=== PATIENT | male | born 1960 | race African-American/Black ===

== ENCOUNTER → 2017-08-02 | Outpatient (CLI) | payer MEDICAID ==
[2017-08-02 09:28] LABS: BLOOD GAS BASE EXCESS 0.6 mmol/L (-2-2); BLOOD GAS CARBOXYHEMOGLOBIN 0.9 % (0-4); BLOOD GAS HCO3 25 mmol/L (22-26); BLOOD GAS METHEMOGLOBIN 1.1 % (0-2); BLOOD GAS O2 HGB SATURATION 93 % (90-100); BLOOD GAS OXYGEN CONTENT 16.7 Vol % (12.0-20.0); BLOOD GAS PCO2 43 mmHg (38-42); BLOOD GAS PO2 79 mmHg (61-120); BLOOD GAS TOTAL HGB 12.7 G/DL (12.0-16.0); CRITICAL VALUE NO; DRAW SITE RT RADIAL; FIO2 21 %; NUMBER OF ARTERIAL PUNCTURES 1; STAT NO; TEMP CORR TO 98.6; ULNAR PULSE PRESENT
--- NOTE | 2017-08-02 10:18 | RADRPT ---
EXAM DATE/TIME: 08/02/2017 09:38 [facility] COMPARISON: No previous studies available for comparison. INDICATIONS : Short of breath. Abnormal breathing. MEDICAL HISTORY : None. SURGICAL HISTORY : None. ENCOUNTER: Initial ACUITY: 1 day PAIN SCORE: 0/10 LOCATION: chest FINDINGS: PA and lateral views of the chest demonstrate the lungs to be symmetrically aerated without evidence of mass, infiltrate or effusion. The cardiomediastinal contours are unremarkable. Osseous structure s are intact. CONCLUSION: No acute disease. Micha Leone MD FACR on August 02, 2017 at 10:13 Board Certified Radiologist. This report was verified electronically.
--- NOTE | 2017-08-07 10:06 | RSPPFT ---
DATE OF PROCEDURE: 08/02/17 COMMENTS: Spirometry with FVC of 2.6, FEV1 of 1.6, FEV1/FVC ratio at 61%. There is a non-significant response to acutely inhaled bronchodilator. Room air arterial blood gases show pH of 7.38, PCO2 of 43, PO2 of 79. Slow vital capacity is 67% of predicted. TLC is 69%. Diffusion capacity is 45% and normal when corrected for alveolar volume. IMPRESSION: 1. Moderately severe airways obstruction. 2. Non-significant response to acutely inhaled bronchodilator. 3. Adequate oxygenation and alveolar ventilation. 4. Mild airways restriction. 5. Reduced diffusion capacity but normal when corrected for alveolar volume.
== END ==
LOC: HRSP 08:37
PROVIDERS: ATTEND Internal Medicine Sleep Medicine
DX: R06.89 Other abnormalities of breathing (principal)
CPT/HCPCS: 36600; 71020; 82805; 94060; 94726; 94729

== ENCOUNTER 2017-11-11 04:16 | Observation (INO) | payer MEDICAID ==
[~2017-11-11] VITALS: Ht 170.2 cm; Wt 90.9 kg
[2017-11-11 04:22] VITALS: BP 208/111; PULSE 124; RESP 20; TEMP 102; O2SAT 99
[2017-11-11] MEDS ORDERED: SYMB160A INH (04:30)
[2017-11-11] MEDS ORDERED: VENTAER INH (04:30)
[2017-11-11] MEDS ORDERED: TIOT12.9 INH (04:30)
[2017-11-11] MEDS ORDERED: LEVEMIR SQ (04:30)
[2017-11-11] MEDS ORDERED: METF1000 PO (04:30)
[2017-11-11] MEDS ORDERED: ACETAMINOPHEN 325 MG TAB PO ONE (05:00)
--- NOTE | 2017-11-11 05:06 | PD ---
HPI Chief Complaint: Respiratory Distress Time Seen by Provider: 04:29 Travel History International Travel<30 days: No Contact w/Intl Traveler<30days: No Traveled to known affect area: No History of Present Illness HPI Patient is an insulin-dependent diabetic 57-year-old man with COPD for the last 2 days he has had fever cough sore throat generalized malaise body aches headache. He called 9 1 pleasant middle the night he felt severely short of breath and he was given a DuoNeb 2 and Solu-Medrol en route and arrives in the ER febrile to 102 tachycardic and hypertensive she denies having hypertension his initial vitals are 202/100 on his blood pressure and his tachycardia at 140 most likely secondary to his fever Tylenol is given duo nebs and antibiotics for the COPD and possible superinfection ontop of the viral upper respiratory infection PFSH Past Medical History COPD: Yes Diabetes: Yes Patient Takes Glucophage: Yes Psychiatric: Yes (depression, anxiety, social phobia) Social History Alcohol Use: No Tobacco Use: No Substance Use: No Allergies-Medications (Allergen,Severity, Reaction): Coded Allergies: No Known Allergies (Unverified , 11/11/17) Reported Meds & Prescriptions Reported Meds & Active Scripts Active Reported Ventolin Hfa 18 GM Inh (Albuterol Sulfate) 90 Mcg/Act Aer 2 Puff INH Q4-6H PRN Metformin (Metformin HCl) 1,000 Mg Tab 1,000 Mg PO BIDPC Levemir Inj (Insulin Detemir) 1,000 unit/ 10 ML Vial 27 Units SQ HS Do not mix with any other Insulin. Symbicort Inh (Budesonide/Formoterol Fumarate) 160-4.5 Mcg/Act Aero 2 Puff INH Q12HR Spiriva Respimat Inh (Tiotropium Inh) 2.5 Mcg/Act Aero 2 Puff INH DAILY 2.5 mcg = 1 inhalation Review of Systems Except as stated in HPI: all other systems reviewed are Neg Physical Exam Narrative GENERAL: Patient looks diaphoretic and uncomfortable he is tachycardic to 140 hypertensive 200/100 SKIN: Warm and dry. Diaphoretic HEAD: Atraumatic. Normocephalic. EYES: Pupils equal and round. No scleral icterus. No injection or drainage. ENT: No nasal bleeding or discharge. Mucous membranes pink and moist. NECK: Trachea midline. No JVD. CARDIOVASCULAR: Tacky to 140 on his rate and rhythm. Sinus tach RESPIRATORY patient is coughing repeatedly and has diffuse respiratory wheezes throughout all lung perez GASTROINTESTINAL: Abdomen soft, non-tender, nondistended. Hepatic and splenic margins not palpable. MUSCULOSKELETAL: Extremities without clubbing, cyanosis, or edema. No obvious deformities. NEUROLOGICAL: Awake and alert. No obvious cranial nerve deficits. Motor grossly within normal limits. Five out of 5 muscle strength in the arms and legs. Normal speech. PSYCHIATRIC: Appropriate mood and affect; insight and judgment normal. Data Data Last Documented VS Vital Signs Date Time Temp Pulse Resp B/P (MAP) Pulse Ox O2 Delivery O2 Flow Rate FiO2 11/11/17 04:22 102.0 124 20 208/111 (143) 99 Orders Orders Acetaminophen (Tylenol) (11/11/17 05:00) Influenzae A/B Antigen (11/11/17 04:56) Complete Blood Count With Diff (11/11/17 04:56) Comprehensive Metabolic Panel (11/11/17 04:56) Chest, Single Ap (11/11/17 ) Levofloxacin 750 Mg Premix Inj (Levaquin (11/12/17 06:00) Methylprednisolone So Succ Inj (Solumedr (11/11/17 12:00) Guaifenesin Er (Mucinex Er) (11/11/17 09:00) Bedside Glucose LITTLE.CSUGAR (11/11/17 06:27) Blood Glucose Goal (Criteria) (11/11/17 06:27) Hypoglycemia 70 Mg/Dl Or < (11/11/17 06:27) Notify Dr: Other (11/11/17 06:27) Dextrose 50% In Wanda (Vial) Inj (D50w (Vi (11/11/17 06:30) Glucagon Inj (Glucagon Inj) (11/11/17 06:30) Insulin Aspart Supplemtl Scale (Novolog (11/11/17 08:00) Albuterol-Ipratropium Neb (Duoneb Neb) (11/11/17 06:30) Place In Observation (11/11/17 ) Vital Signs (Adult) Q4H (11/11/17 06:27) Activity Oob Ad Nydia (11/11/17 06:27) Diet 1800 Ada Cons Carb (11/11/17 Breakfast) Sodium Chlor 0.9% 1000 Ml Inj (Ns 1000 M (11/11/17 06:27) Sodium Chloride 0.9% Flush (Ns Flush) (11/11/17 06:30) Sodium Chloride 0.9% Flush (Ns Flush) (11/11/17 09:00) Ondansetron Inj (Zofran Inj) (11/11/17 06:30) Comprehensive Metabolic Panel (11/12/17 06:00) Complete Blood Count With Diff (11/12/17 06:00) Scd Bilateral/Knee High LITTLE.BID (11/11/17 06:27) Danny Bilateral/Knee High LITTLE.QSHIFT (11/11/17 06:30) Acetaminophen (Tylenol) (11/11/17 06:30) Acetamin-Hydrocod 325-5 Mg ([place] 5-325 (11/11/17 06:30) Morphine Inj (Morphine Inj) (11/11/17 06:30) Docusate Sodium-Senna (Tasha-Colace) (11/11/17 09:00) Magnesium Hydroxide Liq (Milk Of Magnesi (11/11/17 06:30) Sennosides (Senokot) (11/11/17 06:30) Bisacodyl Supp (Dulcolax Supp) (11/11/17 06:30) Lactulose Liq (Lactulose Liq) (11/11/17 06:30) Oseltamivir (Tamiflu) (11/11/17 21:00) Insulin Detemir Inj (Levemir Inj) (11/11/17 21:00) Patient Own Medication (11/11/17 09:00) Admit Order (Ed Use Only) (11/11/17 06:39) Labs Laboratory Tests Test 11/11/17 05:28 White Blood Count 6.8 TH/MM3 Red Blood Count 5.11 MIL/MM3 Hemoglobin 13.3 GM/DL Hematocrit 39.6 % Mean Corpuscular Volume 77.5 FL Mean Corpuscular Hemoglobin 25.9 PG Mean Corpuscular Hemoglobin Concent 33.5 % Red Cell Distribution Width 15.4 % Platelet Count 328 TH/MM3 Mean Platelet Volume 7.2 FL Neutrophils (%) (Auto) 73.7 % Lymphocytes (%) (Auto) 17.0 % Monocytes (%) (Auto) 7.4 % Eosinophils (%) (Auto) 1.3 % Basophils (%) (Auto) 0.6 % Neutrophils # (Auto) 5.0 TH/MM3 Lymphocytes # (Auto) 1.2 TH/MM3 Monocytes # (Auto) 0.5 TH/MM3 Eosinophils # (Auto) 0.1 TH/MM3 Basophils # (Auto) 0.0 TH/MM3 CBC Comment DIFF FINAL Differential Comment Blood Urea Nitrogen 9 MG/DL Creatinine 1.28 MG/DL Random Glucose 146 MG/DL Total Protein 8.2 GM/DL Albumin 3.9 GM/DL Calcium Level 9.2 MG/DL Alkaline Phosphatase 245 U/L Aspartate Amino Transf (AST/SGOT) 27 U/L Alanine Aminotransferase (ALT/SGPT) 38 U/L Total Bilirubin 0.3 MG/DL Sodium Level 141 MEQ/L Potassium Level 4.3 MEQ/L Chloride Level 107 MEQ/L Carbon Dioxide Level 27.8 MEQ/L Anion Gap 6 MEQ/L Estimat Glomerular Filtration Rate 70 ML/MIN [facility] Medical Decision Making Medical Screen Exam Complete: Yes Emergency Medical Condition: Yes Differential Diagnosis Differential diagnosis upper respiratory infection viral versus pneumonia versus bronchitis versus COPD exacerbation versus influenza versus strep pharyngitis other Narrative Course pt has SOB tachycardia and HTN and desaturation to 89 % on RA has postive flu swab given TAmiflu and antibioitcs and received Solumedrol and nebs enroute EMS needs admit until; lung inflammation resolved Diagnosis Primary Impression: Bronchitis Scripts Prednisone (Prednisone) 20 Mg Tab 40 MG PO DAILY for COPD for 4 Days, #8 TAB 0 Refills Take 40 mg (2 tablets) daily for 5 days Prov: Annmarie Herrera PA-C 11/13/17 [guaiFENesin ER] 600 MG TABCR No Conflict Check 600 MG PO BID for Chest Congestion/Cough for 7 Days, #14 Prov: Annmarie Herrera PA-C 11/13/17 Oseltamivir (Tamiflu) 75 Mg Cap 75 MG PO BID for influenza for 3 Days, #6 CAP Prov: Annmarie Herrera PA-C 11/13/17 Ankur Lopez MD Nov 11, 2017 05:06
[2017-11-11 05:45] LABS: BASOPHIL % 0.6 % (0.0-2.0); EOSINOPHIL # 0.1 TH/MM3 (0-0.4); EOSINOPHIL % 1.3 % (0.0-4.0); HEMATOCRIT 39.6 % (39.0-51.0); HEMOGLOBIN 13.3 GM/DL (13.0-17.0); LYMPHOCYTE # 1.2 TH/MM3 (1.0-4.8); MEAN CELL VOLUME 77.5 FL (80.0-100.0); MEAN CORPUSCULAR HEMOGLOBIN 25.9 PG (27.0-34.0); MEAN CORPUSCULAR HGB CONC 33.5 % (32.0-36.0); MEAN PLATELET VOLUME 7.2 FL (7.0-11.0); MONO % 7.4 % (0.0-8.0); MONOCYTE # 0.5 TH/MM3 (0-0.9); NEUT % 73.7 % (16.0-70.0); PLATELET COUNT 328 TH/MM3 (150-450); RED BLOOD COUNT 5.11 MIL/MM3 (4.50-5.90); RED CELL DISTRIBUTION WIDTH 15.4 % (11.6-17.2); WHITE BLOOD COUNT 6.8 TH/MM3 (4.0-11.0)
[2017-11-11 06:10] LABS: ALBUMIN 3.9 GM/DL (3.4-5.0); ALT (GPT) 38 U/L (12-78); AST (GOT) 27 U/L (15-37); BICARBONATE 27.8 MEQ/L (21.0-32.0); BLOOD UREA NITROGEN 9 MG/DL (7-18); CALCIUM 9.2 MG/DL (8.5-10.1); CHLORIDE 107 MEQ/L (98-107); CREATININE 1.28 MG/DL (0.60-1.30); GLOMERULAR FILTRATION RATE 70 ML/MIN (>89); GLUCOSE,RANDOM 146 MG/DL (74-106); SODIUM (NA) 141 MEQ/L (136-145)
[2017-11-11 06:12] LABS: ALKALINE PHOSPHATASE 245 U/L (45-117); TOTAL BILIRUBIN ADULT 0.3 MG/DL (0.2-1.0); TOTAL PROTEIN 8.2 GM/DL (6.4-8.2)
--- NOTE | 2017-11-11 06:23 | RADRPT ---
EXAM DATE/TIME: 11/11/2017 06:01 [facility] COMPARISON: CHEST PA & LAT, August 02, 2017, 9:38. INDICATIONS : Shortness of breath. MEDICAL HISTORY : None. SURGICAL HISTORY : None. ENCOUNTER: Initial ACUITY: 1 day PAIN SCORE: 0/10 LOCATION: Bilateral chest FINDINGS: A single view of the chest demonstrates the lungs to be symmetrically aerated without evidence of mas s, infiltrate or effusion. The cardiomediastinal contours are unremarkable. Osseous structures are intact. CONCLUSION: No evidence of acute cardiopulmonary disease. Kendall Blancas MD on November 11, 2017 at 6:22 Board Certified Radiologist. This report was verified electronically.
[2017-11-11] MEDS ORDERED: DEXTROSE 50% IN WATER 50 ML VIAL(D50) IV PUSH PRN (06:30)
[2017-11-11] MEDS ORDERED: MAGNESIUM HYDROXIDE SUSP 30 ML CUP PO PRN (06:30)
[2017-11-11] MEDS ORDERED: GLUCAGON 1 MG/ML VIAL OTHER PRN (06:30)
[2017-11-11] MEDS ORDERED: BISACODYL 10 MG SUPP RECTAL PRN (06:30)
[2017-11-11] MEDS ORDERED: ACETAMINOPHEN/HYDROcodone 325 MG/5 MG TAB PO PRN (06:30)
[2017-11-11] MEDS ORDERED: RESP: ALBUTEROL 2.5 MG/IPRATROPIUM 0.5 MG NEB (PRN) NEB (06:30)
[2017-11-11] MEDS ORDERED: SODIUM CHLORIDE 0.9% FLUSH 10 ML FLUSH IV FLUSH PRN (06:30)
[2017-11-11] MEDS ORDERED: SENNOSIDES 8.6 MG TAB PO PRN (06:30)
[2017-11-11] MEDS ORDERED: MORPHINE SULFATE 2 MG/ML INJ IV PUSH PRN (06:30)
[2017-11-11] MEDS ORDERED: ONDANSETRON HCL 4 MG/2 ML VIAL IVP PRN (06:30)
[2017-11-11] MEDS ORDERED: LACTULOSE SYRUP 20 GM/30 ML CUP PO PRN (06:30)
[2017-11-11 08:00] VITALS: BP 165/91; PULSE 110; RESP 30; O2SAT 98
[2017-11-11] MEDS: guaiFENesin E.R. 600 MG TAB PO SCH ×2 (08:52→21:01)
[2017-11-11] MEDS: SODIUM CHLOR 0.9% 1000 ML INJ 1,000 ML IV SCH ×2 (08:52→17:03)
[2017-11-11] MEDS: DOCUSATE SODIUM 50 MG/SENNA 8.6 MG TAB PO SCH ×2 (08:52→21:00)
[2017-11-11] MEDS: INSULIN ASPART SUPPLEMENTAL SCALE SQ SCH ×4 (08:53→21:04)
[2017-11-11] MEDS: SODIUM CHLORIDE 0.9% FLUSH 10 ML FLUSH IV FLUSH SCH ×2 (08:53→21:00)
[2017-11-11] MEDS ORDERED: TIOTROPIUM INH SCH (09:00)
[2017-11-11 09:58] VITALS: BP 140/81; PULSE 116; RESP 28; O2SAT 97
[2017-11-11 11:13] VITALS: BP 160/80; PULSE 112; RESP 22; TEMP 99.7; O2SAT 94
[2017-11-11] MEDS: ACETAMINOPHEN 325 MG TAB PO PRN ×2 (11:20→18:03)
[2017-11-11] MEDS: methylPREDNISolone SOD SUCC 40 MG/1 ML VIAL IV PUSH SCH ×2 (11:20→17:02)
--- NOTE | 2017-11-11 11:32 | HHI.HP ---
HPI Service [facility] Primary Care Physician Unknown Admission Diagnosis COPD exacerbation , FLU bronchitis Diagnoses: Chief Complaint: SOB, wheezing, myalgias Travel History International Travel<30 Days: No Contact w/Intl Traveler <30 Da: No Traveled to Known Affected Are: No Sepsis Criteria SIRS Criteria (2 or more): Temp > 100.9 or < 96.8, Heart rate over 90, RR > 20 or PaCO2 < 32 Sepsis Criteria (SIRS+source): Infect source susp/known Criteria Outcome: Meets sepsis criteria History of Present Illness Written by Annmarie Herrera, acting as scribe for Dr. Cruz on 11/11/17 at 11: 29. 57-year-old male with history of COPD, insulin dependent diabetes, anxiety, depression, social phobia, presents with a 1 day history of shortness of breath , wheezing, cough, and myalgias. The patient reports yesterday morning he woke up with significant cough and shortness of breath. He reports headache, myalgias , and subjective fevers/chills. He also reports wheezing and dyspnea on exertion. This morning he became very short of breath, felt like he couldn't breathe, and called 911. He was given IV solumedrol and duonebs en route. Upon his arrival, Tmax 102.0, heart rate 124, respiratory rate 30, and BP 208/111. Influenza screen positive for Flu A Antigen and he was started on Tamiflu. Chest xray unremarkable, however with productive cough and wheezing, also given antibiotics. The patient is now seen in observation. He reports feeling better however still short of breath with wheezing, cough, and myalgias. He has nebulizer at home, uses as needed. The patient lives in a "rooming house" with a roommate, discussed notifying roommate to make him aware of flu positive. He denies any abdominal pain, nausea, vomiting, or diarrhea. The patient has no other medical complaints to report at this time. Review of Systems Except as stated in HPI: all other systems reviewed are Neg Past Family Social History Past Medical History COPD insulin dependent diabetes anxiety depression social phobia Past Surgical History Bilateral ankle fracture repair Reported Medications Ventolin Hfa 18 GM Inh (Albuterol Sulfate) 90 Mcg/Act Aer 2 Puff INH Q4-6H PRN Metformin (Metformin HCl) 1,000 Mg Tab 1,000 Mg PO BIDPC Levemir Inj (Insulin Detemir) 1,000 unit/ 10 ML Vial 27 Units SQ HS Symbicort Inh (Budesonide/Formoterol Fumarate) 160-4.5 Mcg/Act Aero 2 Puff INH Q12HR Spiriva Respimat Inh (Tiotropium Inh) 2.5 Mcg/Act Aero 2 Puff INH DAILY 2.5 mcg = 1 inhalation Allergies: Coded Allergies: No Known Allergies (Unverified , 11/11/17) Active Ordered Medications Current Medications Medications (Trade) Dose Ordered Sig/Jose A Route Start Time Stop Time Status Last Admin Levofloxacin/ Dextrose 150 ml @ 100 mls/hr Q24H IV 11/12/17 06:00 (SoluMEDROL INJ) 40 mg Q6HR IV PUSH 11/11/17 12:00 11/11/17 11:20 (Mucinex Er) 600 mg BID PO 11/11/17 09:00 11/11/17 08:52 (D50w (Vial) Inj) 50 ml UNSCH PRN IV PUSH 11/11/17 06:30 (Glucagon Inj) 1 mg UNSCH PRN OTHER 11/11/17 06:30 (NovoLOG SUPPLEMENTAL SCALE) 1 ACHS SLIDING SCALE SQ 11/11/17 08:00 11/11/17 13:19 (Duoneb Neb) 1 ampule Q4HR NEB PRN NEB 11/11/17 06:30 Sodium Chloride 1,000 ml @ 100 mls/hr Q10H IV 11/11/17 06:27 11/11/17 08:52 (NS Flush) 2 ml UNSCH PRN IV FLUSH 11/11/17 06:30 (NS Flush) 2 ml BID IV FLUSH 11/11/17 09:00 (Zofran Inj) 4 mg Q6H PRN IVP 11/11/17 06:30 (Tylenol) 650 mg Q6H PRN PO 11/11/17 06:30 11/11/17 11:20 ([place] 5-325 Mg) 1 tab Q4H PRN PO 3/10/18 06:30 (Morphine Inj) 2 mg Q3H PRN IV PUSH 11/11/17 06:30 (Tasha-Colace) 1 tab BID PO 11/11/17 09:00 11/11/17 08:52 (Milk Of Magnesia Liq) 30 ml Q12H PRN PO 11/11/17 06:30 (Senokot) 17.2 mg Q12H PRN PO 11/11/17 06:30 (Dulcolax Supp) 10 mg DAILY PRN RECTAL 11/11/17 06:30 (Lactulose Liq) 30 ml DAILY PRN PO 11/11/17 06:30 (Tamiflu) 75 mg BID PO 11/11/17 21:00 (Levemir Inj) 27 units HS SQ 11/11/17 21:00 Patient Own Medication Tiotropium Inh (Spir... DAILY INH 11/11/17 09:00 Future Hold Family History Family history positive for diabetes Social History Denies any tobacco, alcohol, or illicit drug use. Physical Exam Vital Signs Vital Signs Date Time Temp Pulse Resp B/P (MAP) Pulse Ox O2 Delivery O2 Flow Rate FiO2 11/11/17 11:13 99.7 112 22 160/80 (106) 94 11/11/17 10:31 11/11/17 09:58 116 28 140/81 (100) 97 Room Air 2.00 11/11/17 08:00 110 30 165/91 (115) 98 Nasal Cannula 2.00 11/11/17 04:22 102.0 124 20 208/111 (143) 99 Physical Exam GENERAL: Well-nourished, well-developed middle aged male patient in [facility]. SKIN: Warm and dry. No rash. HEAD: Normocephalic. Atraumatic. EYES: Pupils equal and round. No scleral icterus. No injection or drainage. ENT: No nasal bleeding or discharge. Mucous membranes pink and moist. NECK: Supple. Trachea midline. CARDIOVASCULAR: Tachycardic, regular rhythm. S1, S2 noted. No murmur appreciated. RESPIRATORY: No accessory muscle use. Expiratory wheezing throughout. Tachypneic. Breath sounds equal bilaterally. GASTROINTESTINAL: Abdomen soft, non-tender, nondistended. Normoactive bowel sounds x4. MUSCULOSKELETAL: No obvious deformities. Extremities without clubbing, cyanosis , or edema. NEUROLOGICAL: Awake and alert. No obvious cranial nerve deficits. Motor grossly within normal limits. Normal speech. PSYCHIATRIC: Appropriate mood and affect; insight and judgment normal. Laboratory Laboratory Tests Test 11/11/17 05:28 White Blood Count 6.8 Red Blood Count 5.11 Hemoglobin 13.3 Hematocrit 39.6 Mean Corpuscular Volume 77.5 Mean Corpuscular Hemoglobin 25.9 Mean Corpuscular Hemoglobin Concent 33.5 Red Cell Distribution Width 15.4 Platelet Count 328 Mean Platelet Volume 7.2 Neutrophils (%) (Auto) 73.7 Lymphocytes (%) (Auto) 17.0 Monocytes (%) (Auto) 7.4 Eosinophils (%) (Auto) 1.3 Basophils (%) (Auto) 0.6 Neutrophils # (Auto) 5.0 Lymphocytes # (Auto) 1.2 Monocytes # (Auto) 0.5 Eosinophils # (Auto) 0.1 Basophils # (Auto) 0.0 CBC Comment DIFF FINAL Differential Comment Blood Urea Nitrogen 9 Creatinine 1.28 Random Glucose 146 Total Protein 8.2 Albumin 3.9 Calcium Level 9.2 Alkaline Phosphatase 245 Aspartate Amino Transf (AST/SGOT) 27 Alanine Aminotransferase (ALT/SGPT) 38 Total Bilirubin 0.3 Sodium Level 141 Potassium Level 4.3 Chloride Level 107 Carbon Dioxide Level 27.8 Anion Gap 6 Estimat Glomerular Filtration Rate 70 Date/Time Source Procedure Growth Status 11/11/17 05:28 Nasal Aspirate Influenza Types A,B Antigen (MARCO ANTONIO) - Final Positive For Flu A Antigen Complete Result Diagram: 11/11/17 0528 11/11/17 0528 Imaging Last Impressions Chest X-Ray 11/11/17 0000 Signed Impressions: Service Date/Time: Saturday, November 11, 2017 06:01 - CONCLUSION: No evidence of acute cardiopulmonary disease. Kendall Blancas MD Capjeffi VTE Risk Assessment Caprini VTE Risk Assessment: No/Low Risk (score <= 1) Caprini Risk Assessment Model Point Value = 1 Point Value = 2 Point Value = 3 Point Value = 5 Age 41-60 Minor surgery BMI > 25 kg/m2 Swollen legs Varicose veins or History of unexplained or recurrent spontaneous Oral contraceptives or hormone replacement Sepsis (< 1 month) Serious lung disease, including pneumonia (< 1 month) Abnormal pulmonary function Acute myocardial infarction Congestive heart failure (< 1 month) History of inflammatory bowel disease Medical patient at bed rest Age 61-74 Arthroscopic surgery Major open surgery (> 45 min) Laparoscopic surgery (> 45 min) Malignancy Confined to bed (> 72 hours) Immobilizing plaster cast Central venous access Age >= 75 History of VTE Family history of VTE Factor V Leiden Prothrombin [id number] Lupus anticoagulant Anticardiolipin antibodies Elevated serum homocysteine Heparin-induced thrombocytopenia Other congenital or acquired thrombophilia Stroke (< 1 month) Elective arthroplasty Hip, pelvis, or leg fracture Acute spinal cord injury (< 1 month) Prophylaxis Regimen Total Risk Factor Score Risk Level Prophylaxis Regimen 0-1 Low Early ambulation 2 Moderate Order ONE of the following: *Sequential Compression Device (SCD) *Heparin 5000 units SQ BID 3-4 Higher Order ONE of the following medications: *Heparin 5000 units SQ TID *Enoxaparin/Lovenox 40 mg SQ daily (WT < 150 kg, CrCl > 30 mL/min) *Enoxaparin/Lovenox 30 mg SQ daily (WT < 150 kg, CrCl > 10-29 mL/min) *Enoxaparin/Lovenox 30 mg SQ BID (WT < 150 kg, CrCl > 30 mL/min) AND/OR *Sequential Compression Device (SCD) 5 or more Highest Order ONE of the following medications: *Heparin 5000 units SQ TID (Preferred with Epidurals) *Enoxaparin/Lovenox 40 mg SQ daily (WT < 150 kg, CrCl > 30 mL/min) *Enoxaparin/Lovenox 30 mg SQ daily (WT < 150 kg, CrCl > 10-29 mL/min) *Enoxaparin/Lovenox 30 mg SQ BID (WT < 150 kg, CrCl > 30 mL/min) AND *Sequential Compression Device (SCD) Assessment and Plan Problem List: (1) Sepsis ICD Code: A41.9 - Sepsis, unspecified organism (2) Influenza A ICD Code: J10.1 - Influenza due to other identified influenza virus with other respiratory manifestations (3) COPD exacerbation ICD Code: J44.1 - Chronic obstructive pulmonary disease with (acute) exacerbation (4) Diabetes mellitus ICD Code: E11.9 - Type 2 diabetes mellitus without complications Assessment and Plan 57-year-old male with history of COPD, insulin dependent diabetes, anxiety, depression, social phobia, presents with a 1 day history of shortness of breath , wheezing, cough, and myalgias. Sepsis with Influenza A: patient meets sepsis criteria with Tmax 102.0, tachycardia HR 124, tachypnea RR 30, suspected source-Influenza. -Started on Tamiflu 75mg bid x5days -Supportive treatment with IVF hydration, tylenol prn fever, pain control with [place] prn and IV morphine prn -PT eval -Continue to monitor COPD Exacerbation: CXR images reviewed, no acute findings; however patient with +cough/wheezing and sepsis as above. -Continue duonebs tid scheduled and q4h prn -Continue steroids with IV Solumedrol 40mg q6h -O2 as needed to keep O2 sat >92% Insulin Dependent Diabetes Mellitus: chronic, expect higher blood glucose while on steroids -Continue patient's Levemir 27u hs and Metformin -Monitor Accu-checks and cover with SSI -Diabetic Diet DVT Prophylaxis: lovenox sq Discussed Condition With Patient, RN This note was transcribed by lidia Herrera. I, Dr. Booker Cruz personally performed the history, physical exam, and medical decision making; and confirmed the accuracy of the information in the transcribed note. Authenticated by Dr. Booker Cruz on 11/11/17 at 11:35. Annmarie Herrera PA-C Nov 11, 2017 11:32 Booker Cruz MD Nov 11, 2017 11:35
[2017-11-11] MEDS: RESP: ALBUTEROL 2.5 MG/IPRATROPIUM 0.5 MG NEB (SCH) NEB ×2 (14:59→20:12)
[2017-11-11 16:30] VITALS: BP 178/96; PULSE 110; RESP 18; TEMP 101; O2SAT 97
[2017-11-11] MEDS: metFORMIN HCL 500 MG TAB PO SCH (17:03)
[2017-11-11] MEDS ORDERED: ENALAPRILAT 1.25 MG/ML VIAL IV PUSH PRN (17:45)
[2017-11-11 20:05] VITALS: BP 175/91; PULSE 109; RESP 20; TEMP 99.4; O2SAT 97
[2017-11-11] MEDS: OSELTAMIVIR PHOSPHATE 75 MG CAP PO SCH (21:01)
[2017-11-11] MEDS: INSULIN DETEMIR 100 UNITS/ML VIAL SQ SCH (21:03)
[2017-11-11] MEDS: ENOXAPARIN SODIUM 40 MG/0.4 ML SYRINGE SQ SCH (21:04)
[2017-11-12] VITALS (7 sets, daily range): BP systolic 147–186; BP diastolic 78–98; PULSE 91–110; RESP 16–20; TEMP 98.3–99.5; O2SAT 93–97
[2017-11-12] MEDS: methylPREDNISolone SOD SUCC 40 MG/1 ML VIAL IV PUSH SCH ×5 (00:13→23:54)
[2017-11-12] MEDS ORDERED: LEVOFLOXACIN 750 MG PREMIX INJ 150 ML IV SCH (06:00)
[2017-11-12 07:02] LABS: AUTOMATED NEUTROPHIL # 4.5 TH/MM3 (1.8-7.7); BASOPHIL % 0.2 % (0.0-2.0); HEMATOCRIT 35.6 % (39.0-51.0); HEMOGLOBIN 11.8 GM/DL (13.0-17.0); LYMPH % 15.1 % (9.0-44.0); LYMPHOCYTE # 0.9 TH/MM3 (1.0-4.8); MEAN CELL VOLUME 77.2 FL (80.0-100.0); MEAN CORPUSCULAR HEMOGLOBIN 25.7 PG (27.0-34.0); MEAN CORPUSCULAR HGB CONC 33.3 % (32.0-36.0); MONO % 6.1 % (0.0-8.0); MONOCYTE # 0.3 TH/MM3 (0-0.9); NEUT % 78.6 % (16.0-70.0); PLATELET COUNT 286 TH/MM3 (150-450); RED BLOOD COUNT 4.61 MIL/MM3 (4.50-5.90); RED CELL DISTRIBUTION WIDTH 15.9 % (11.6-17.2); WHITE BLOOD COUNT 5.7 TH/MM3 (4.0-11.0)
--- NOTE | 2017-11-12 07:17 | HHI.PR ---
Subjective Remarks Follow-up influenza and COPD exacerbation. T-max 101. BP elevated 186/91. Patient feels better with less shortness of breath denies headache, chest pain and dizziness discussed with nursing Objective Vitals Vital Signs Date Time Temp Pulse Resp B/P (MAP) Pulse Ox O2 Delivery O2 Flow Rate FiO2 11/12/17 04:13 99.3 104 20 186/98 (127) 96 11/12/17 00:24 98.8 102 18 157/88 (111) 97 11/11/17 20:05 99.4 109 20 175/91 (119) 97 11/11/17 16:30 101.0 110 18 178/96 (123) 97 11/11/17 11:13 99.7 112 22 160/80 (106) 94 11/11/17 10:31 11/11/17 09:58 116 28 140/81 (100) 97 Room Air 2.00 11/11/17 08:00 110 30 165/91 (115) 98 Nasal Cannula 2.00 I/O 11/11/17 11/11/17 11/11/17 11/12/17 11/12/17 11/12/17 07:00 15:00 23:00 07:00 15:00 23:00 Intake Total 954 ml Balance 954 ml Intake IV Total 954 ml Result Diagram: 11/12/17 0640 11/11/17 0528 Imaging Last Impressions Chest X-Ray 11/11/17 0000 Signed Impressions: Service Date/Time: Saturday, November 11, 2017 06:01 - CONCLUSION: No evidence of acute cardiopulmonary disease. Kendall Blancas MD Objective Remarks GENERAL: Well-nourished, well-developed middle aged male patient in [facility]. SKIN: Warm and dry. No rash. CARDIOVASCULAR: Tachycardic, regular rhythm. S1, S2 noted. No murmur appreciated. RESPIRATORY: No accessory muscle use. Expiratory wheezing improved he has stridor denies throat tightness. Tachypneic. Breath sounds equal bilaterally. GASTROINTESTINAL: Abdomen soft, non-tender, nondistended. Normoactive bowel sounds x4. MUSCULOSKELETAL: No obvious deformities. Extremities without clubbing, cyanosis , or edema. NEUROLOGICAL: Awake and alert. No obvious cranial nerve deficits. Motor grossly within normal limits. Normal speech. PSYCHIATRIC: Appropriate mood and affect; insight and judgment normal. Procedures none A/P Problem List: (1) Sepsis ICD Code: A41.9 - Sepsis, unspecified organism (2) Influenza A ICD Code: J10.1 - Influenza due to other identified influenza virus with other respiratory manifestations (3) COPD exacerbation ICD Code: J44.1 - Chronic obstructive pulmonary disease with (acute) exacerbation (4) Diabetes mellitus ICD Code: E11.9 - Type 2 diabetes mellitus without complications Assessment and Plan 57-year-old male with history of COPD, insulin dependent diabetes, anxiety, depression, social phobia, presents with a 1 day history of shortness of breath , wheezing, cough, and myalgias. Sepsis with Influenza A: patient meets sepsis criteria with Tmax 102.0, tachycardia HR 124, tachypnea RR 30, suspected source-Influenza. -Started on Tamiflu 75mg bid x5days -Supportive treatment with IVF hydration, tylenol prn fever, pain control with [place] prn and IV morphine prn -PT recommended no outpatient follow-up -Continue to monitor COPD Exacerbation: CXR images reviewed, no acute findings; however patient with +cough/wheezing and sepsis as above. -Continue duonebs tid scheduled and q4h prn -Continue steroids with IV Solumedrol 40mg q6h -O2 as needed to keep O2 sat >92%. Racemic epi secondary to stridor denies throat tightness and patient not in distress Insulin Dependent Diabetes Mellitus: chronic, expect higher blood glucose while on steroids -Continue patient's Levemir 27u hs and Metformin -Monitor Accu-checks and cover with SSI -Diabetic Diet Elevated BP likely from steroids denies history of hypertension. Monitor with prn Vasotec DVT Prophylaxis: lovenox sq Discharge Planning Possible discharge in the morning if afebrile for 24 hours Booker Cruz MD Nov 12, 2017 07:17
[2017-11-12 07:26] LABS: ALBUMIN 3.4 GM/DL (3.4-5.0); AST (GOT) 19 U/L (15-37); BICARBONATE 23.9 MEQ/L (21.0-32.0); BLOOD UREA NITROGEN 15 MG/DL (7-18); CALCIUM 8.6 MG/DL (8.5-10.1); CHLORIDE 104 MEQ/L (98-107); CREATININE 1.09 MG/DL (0.60-1.30); GLOMERULAR FILTRATION RATE 84 ML/MIN (>89); GLUCOSE,RANDOM 171 MG/DL (74-106); SODIUM (NA) 137 MEQ/L (136-145)
[2017-11-12 07:27] LABS: ALT (GPT) 34 U/L (12-78)
[2017-11-12 07:30] LABS: ALKALINE PHOSPHATASE 203 U/L (45-117); TOTAL BILIRUBIN ADULT 0.2 MG/DL (0.2-1.0); TOTAL PROTEIN 7.5 GM/DL (6.4-8.2)
[2017-11-12] MEDS: INSULIN ASPART SUPPLEMENTAL SCALE SQ SCH ×4 (08:00→21:17)
[2017-11-12] MEDS: RESP: ALBUTEROL 2.5 MG/IPRATROPIUM 0.5 MG NEB (SCH) NEB ×3 (08:26→20:18)
[2017-11-12] MEDS: OSELTAMIVIR PHOSPHATE 75 MG CAP PO SCH ×2 (08:36→21:15)
[2017-11-12] MEDS: DOCUSATE SODIUM 50 MG/SENNA 8.6 MG TAB PO SCH ×2 (08:36→21:00)
[2017-11-12] MEDS: guaiFENesin E.R. 600 MG TAB PO SCH ×2 (08:36→21:15)
[2017-11-12] MEDS: metFORMIN HCL 500 MG TAB PO SCH ×2 (08:36→17:58)
[2017-11-12] MEDS: SODIUM CHLORIDE 0.9% FLUSH 10 ML FLUSH IV FLUSH SCH ×2 (08:37→21:16)
[2017-11-12] MEDS ORDERED: BENZOCAINE-MENTHOL (SUGAR FREE) 15 MG-3.6 MG LOZENGE BUCCAL PRN (09:45)
[2017-11-12] MEDS ORDERED: RESP: RACEPINEPHRINE 2.25% 0.5 ML NEB NEB PRN (09:45)
[2017-11-12] MEDS ORDERED: BENZOCAINE-MENTHOL (SUGAR FREE) 15 MG-3.6 MG LOZENGE BUCCAL ONE (11:00)
[2017-11-12] MEDS: INSULIN DETEMIR 100 UNITS/ML VIAL SQ SCH (21:16)
[2017-11-12] MEDS: ENOXAPARIN SODIUM 40 MG/0.4 ML SYRINGE SQ SCH (21:17)
[2017-11-13 02:02] VITALS: BP 162/95; PULSE 84; RESP 16; TEMP 98; O2SAT 97
[2017-11-13 05:11] VITALS: BP 150/92; PULSE 86; RESP 17; TEMP 98; O2SAT 97
[2017-11-13] MEDS: methylPREDNISolone SOD SUCC 40 MG/1 ML VIAL IV PUSH SCH ×2 (05:38→12:00)
[2017-11-13] MEDS: RESP: ALBUTEROL 2.5 MG/IPRATROPIUM 0.5 MG NEB (SCH) NEB ×2 (08:03→13:09)
[2017-11-13 08:07] VITALS: O2SAT 94
[2017-11-13 08:32] VITALS: BP 138/85; PULSE 94; RESP 24; TEMP 97.8; O2SAT 99
[2017-11-13] MEDS: DOCUSATE SODIUM 50 MG/SENNA 8.6 MG TAB PO SCH (09:00)
[2017-11-13] MEDS: guaiFENesin E.R. 600 MG TAB PO SCH (09:27)
[2017-11-13] MEDS: SODIUM CHLORIDE 0.9% FLUSH 10 ML FLUSH IV FLUSH SCH (09:27)
[2017-11-13] MEDS: INSULIN ASPART SUPPLEMENTAL SCALE SQ SCH ×2 (09:27→12:00)
[2017-11-13] MEDS: metFORMIN HCL 500 MG TAB PO SCH (09:28)
[2017-11-13] MEDS: OSELTAMIVIR PHOSPHATE 75 MG CAP PO SCH (09:28)
--- NOTE | 2017-11-13 10:32 | HHI.DS ---
Discharge Summary Admission Date Nov 11, 2017 at 06:41 Discharge Date: Nov 13, 2017 Admitting Diagnosis COPD exacerbation , FLU bronchitis (1) Sepsis ICD Code: A41.9 - Sepsis, unspecified organism (2) Influenza A ICD Code: J10.1 - Influenza due to other identified influenza virus with other respiratory manifestations (3) COPD exacerbation ICD Code: J44.1 - Chronic obstructive pulmonary disease with (acute) exacerbation (4) Diabetes mellitus ICD Code: E11.9 - Type 2 diabetes mellitus without complications Procedures none Brief History - From Admission Written by Annmarie Herrera, acting as scribe for Dr. Cruz on 11/11/17 at 11: 29. 57-year-old male with history of COPD, insulin dependent diabetes, anxiety, depression, social phobia, presents with a 1 day history of shortness of breath , wheezing, cough, and myalgias. The patient reports yesterday morning he woke up with significant cough and shortness of breath. He reports headache, myalgias , and subjective fevers/chills. He also reports wheezing and dyspnea on exertion. This morning he became very short of breath, felt like he couldn't breathe, and called 911. He was given IV solumedrol and duonebs en route. Upon his arrival, Tmax 102.0, heart rate 124, respiratory rate 30, and BP 208/111. Influenza screen positive for Flu A Antigen and he was started on Tamiflu. Chest xray unremarkable, however with productive cough and wheezing, also given antibiotics. The patient is now seen in observation. He reports feeling better however still short of breath with wheezing, cough, and myalgias. He has nebulizer at home, uses as needed. The patient lives in a "rooming house" with a roommate, discussed notifying roommate to make him aware of flu positive. He denies any abdominal pain, nausea, vomiting, or diarrhea. The patient has no other medical complaints to report at this time. CBC/BMP: 11/12/17 0640 11/12/17 0640 Significant Findings Laboratory Tests Test 11/11/17 05:28 11/12/17 06:40 Mean Corpuscular Volume 77.5 FL (80.0-100.0) 77.2 FL (80.0-100.0) Mean Corpuscular Hemoglobin 25.9 PG (27.0-34.0) 25.7 PG (27.0-34.0) Neutrophils (%) (Auto) 73.7 % (16.0-70.0) 78.6 % (16.0-70.0) Random Glucose 146 MG/DL (74-106) 171 MG/DL (74-106) Alkaline Phosphatase 245 U/L (45-117) 203 U/L (45-117) Estimat Glomerular Filtration Rate 70 ML/MIN (>89) 84 ML/MIN (>89) Hemoglobin 11.8 GM/DL (13.0-17.0) Hematocrit 35.6 % (39.0-51.0) Lymphocytes # (Auto) 0.9 TH/MM3 (1.0-4.8) Imaging Last Impressions Chest X-Ray 11/11/17 0000 Signed Impressions: Service Date/Time: Saturday, November 11, 2017 06:01 - CONCLUSION: No evidence of acute cardiopulmonary disease. Kendall Blancas MD PE at Discharge GENERAL: Well-nourished, well-developed middle aged male patient in [facility]. SKIN: Warm and dry. No rash. CARDIOVASCULAR: Tachycardic, regular rhythm. S1, S2 noted. No murmur appreciated. RESPIRATORY: No accessory muscle use. Expiratory wheezing improved he has stridor denies throat tightness. Tachypneic. Breath sounds equal bilaterally. GASTROINTESTINAL: Abdomen soft, non-tender, nondistended. Normoactive bowel sounds x4. MUSCULOSKELETAL: No obvious deformities. Extremities without clubbing, cyanosis , or edema. NEUROLOGICAL: Awake and alert. No obvious cranial nerve deficits. Motor grossly within normal limits. Normal speech. PSYCHIATRIC: Appropriate mood and affect; insight and judgment normal. Pt update on day of discharge He is in bed. Says he feels much better. No wheezing. No nausea vomiting no diarrhea or constipation. Says he is not coughing. Says he follow up with pulmonology as outpatient. Feels comfortable to go home. Afebrile. Hospital Course 57-year-old male with history of COPD, insulin dependent diabetes, anxiety, depression, social phobia, presents with a 1 day history of shortness of breath , wheezing, cough, and myalgias. Sepsis with Influenza A: patient meets sepsis criteria with Tmax 102.0, tachycardia HR 124, tachypnea RR 30, suspected source-Influenza. -Started on Tamiflu 75mg bid x5days -Supportive treatment with IVF hydration, tylenol prn fever, pain control with Mikado prn and IV morphine prn -PT recommended no outpatient follow-up -Continue to monitor COPD Exacerbation: CXR images reviewed, no acute findings; however patient with +cough/wheezing and sepsis as above. -Continue duonebs tid scheduled and q4h prn -Continue steroids with IV Solumedrol 40mg q6h -O2 as needed to keep O2 sat >92%. Racemic epi secondary to stridor denies throat tightness and patient not in distress Insulin Dependent Diabetes Mellitus: chronic, expect higher blood glucose while on steroids -Continue patient's Levemir 27u hs and Metformin -Monitor Accu-checks and cover with SSI -Diabetic Diet Elevated BP likely from steroids denies history of hypertension. Monitor with prn Vasotec DVT Prophylaxis: lovenox sq Discharge Planning Feels better. Improved. Afebrile. Follows with Dr. Reveles pulmonology as outpatient. Has nebulizers at home. Walking test normal. He doesn't need O2 at home Improved follow-up with PCP in consultants as outpatient Pt Condition on Discharge: Stable Discharge Disposition: Discharge Home Discharge Time: > 30 minutes Discharge Instructions DIET: Follow Instructions for: Diabetic Diet Activities you can perform: Regular-No Restrictions Follow up Referrals: PCP Follow-up - 1 Week Pulmonology - 1 Week with Anushka Reveles MD New Medications: Prednisone (Prednisone) 20 Mg Tab 40 MG PO DAILY for COPD for 4 Days, #8 TAB 0 Refills Take 40 mg (2 tablets) daily for 5 days Oseltamivir (Tamiflu) 75 Mg Cap 75 MG PO BID for influenza for 3 Days, #6 CAP [guaiFENesin ER] () 600 MG TABCR 600 MG PO BID for Chest Congestion/Cough for 7 Days, #14 Continued Medications: Albuterol 18 GM Inh (Ventolin Hfa 18 GM Inh) 90 Mcg/Act Aer 2 PUFF INH Q4-6H PRN for SHORTNESS OF BREATH, #1 INHALER 0 Refills Budesonide-Formoterol Inh (Symbicort Inh) 160-4.5 Mcg/Act Aero 2 PUFF INH Q12HR, #1 INHALER 0 Refills Insulin Detemir Inj (Levemir Inj) 1,000 unit/ 10 ML Vial 27 UNITS SQ HS for Blood Sugar Management, VIAL 0 Refills Do not mix with any other Insulin. Metformin (Metformin) 1,000 Mg Tab 1000 MG PO BIDPC for Blood Sugar Management, #60 TAB 0 Refills Tiotropium Inh (Spiriva Respimat Inh) 2.5 Mcg/Act Aero 2 PUFF INH DAILY for COPD, #1 INHALER 0 Refills 2.5 mcg = 1 inhalation Isabel Marmolejo MD Nov 13, 2017 10:32
[2017-11-13] MEDS ORDERED: OSEL75 PO (10:57)
[2017-11-13] MEDS ORDERED: PRED20 PO (10:57)
[2017-11-13] MEDS ORDERED: guaiFENesin ER PO (10:57)
--- NOTE | 2017-11-13 10:58 | HHI.DCPOC ---
Discharge Care Plan Diagnosis: (1) Influenza A (2) COPD exacerbation (3) Diabetes mellitus Goals to Promote Your Health * To prevent worsening of your condition and complications * To maintain your health at the optimal level Directions to Meet Your Goals Take your medications as prescribed Follow your dietary instruction Follow activity as directed Keep your appointments as scheduled Take your immunizations and boosters as scheduled If your symptoms worsen call your PCP, if no PCP go to Urgent Care Center or Emergency Room Smoking is Dangerous to Your Health. Avoid second hand smoke Call the 24-hour hour crisis hotline for domestic abuse at Annmarie Herrera PA-C Nov 13, 2017 10:58 am
[2017-11-13 16:39] VITALS: BP 137/85; PULSE 98; RESP 16; TEMP 98.1; O2SAT 98
== END 2017-11-13 19:07 | disposition home or self-care (01) ==
LOC: NEPC 04:16 → NEDA 06:41 → NEPHCDU 10:42
PROVIDERS: ADMIT Hospitalist; ATTEND Hospitalist
DX: A41.9 Sepsis, unspecified organism (principal); J10.1 Influenza due to other identified influenza virus with other respiratory manifestations; J44.1 Chronic obstructive pulmonary disease with (acute) exacerbation; E11.9 Type 2 diabetes mellitus without complications; F41.9 Anxiety disorder, unspecified; F32.9 Major depressive disorder, single episode, unspecified; Z79.4 Long term (current) use of insulin
CPT/HCPCS: 71045; 80053; 82948; 85025; 87804; 94618; 94640; 94664; 96361; 96372; 96374; 96376; 97161; 99285; G0378; J1650; J1815; J2920; J7030